=== PATIENT | male | born 1980 | race Caucasian/White ===

== ENCOUNTER 2025-02-28 01:26 | Emergency (ER) | payer BC, SELFPAY ==
--- NOTE | ~2025-02-28 | CT_ITS ---
CLINICAL HISTORY: Periumbilical pain and tenderness; N V CT abdomen and pelvis with contrast Comparison: None provided Findings: The lung bases are clear. Unremarkable gallbladder and solid organs. No urolithiasis. No bowel obstruction, pneumoperitoneum, or pneumatosis. Pelvic contents unremarkable. There are no focal abdominal wall defect or hernia. No acute fracture. IMPRESSION: No acute findings. This document has been electronically signed by: Valdez Duron MD on 02/28/2025 06:43:21
[2025-02-28 01:29] VITALS: BP 118/75; PULSE 64; RESP 16; TEMP 36.3; O2SAT 100; BMI 23.6
[2025-02-28 02:00] LABS: Hematocrit 41.9 % (42.0-52.0); Hemoglobin 14.4 g/dl (14.0-18.0); Imm Gran Abs Auto 0.03 X10*3/uL (0.00-0.03); Imm Gran Pct Auto 0.3 % (0.0-0.4); Lymphocytes Absolute Auto 1.6 X10*3/uL (1.2-4.9); MANUAL DIFF FLAG NO; Mean Corpuscular HGB Conc 34.4 g/dl (31.0-36.0); Mean Corpuscular Hemoglobin 31.9 pg (27.0-33.0); Mean Corpuscular Volume 92.7 fL (80.0-98.0); NRBC Abs Auto 0.000 X10*3/uL (0.0-0.012); NRBC Pct Auto 0.0 /100WBC (0.0-0.2); Platelet Count 159 X10*3/uL (160-400); Red Blood Count 4.52 X10*6/uL (4.60-5.80); White Blood Count 8.8 X10*3/uL (4.8-10.8)
[2025-02-28 02:13] LABS: Alanine Aminotransferase 25 U/L (0-40); Albumin Level 4.3 g/dL (3.5-5.0); Alkaline Phosphatase 54 U/L (39-117); Anion Gap 13 (12-20); Aspartate Amino Transferase 37 U/L (5-37); Blood Urea Nitrogen 16 mg/dL (9-16); Calcium 9.2 mg/dL (8.4-10.2); Carbon Dioxide 27 mmol/L (22-29); Chloride 103 mmol/L (96-108); Creatinine Clr Calc Pharmacy 116.5; Estimated Glomerular Filt Rate > 60; Lipase 39 U/L (8-78); Potassium 4.3 mmol/L (3.3-5.1); Sodium 139 mmol/L (135-145); Total Protein 7.4 g/dL (6.5-8.0)
--- OUTSIDE RECORDS SUMMARY | 2025-02-28 02:20 | XMS_ITS ---
Author Name [facility] Organization Unknown Care Team Organization Name Specialty Phone Email Start Date End Da te [facility] 02/27/202212/08
--- NOTE | 2025-02-28 03:30 | ED_ITS ---
HPI - Abdominal Pain General Chief Complaint: Abdominal Pain Stated Complaint: abd pain Time Seen by Provider: 02/28/25 03:26 Source: patient Mode of arrival: ambulatory Limitations: no limitations History of Present Illness ED Provider: Pavan GALINDO Related Data Previous Rx's ?Medication ?Instructions ?Recorded hydromorphone 2 mg tablet 2 mg PO Q6H PRN pain #12 tab s 02/28/25 (Dilaudid) Allergies Allergy/AdvReac Type Severity Reaction Status Date / Time bee pollen (BEE STINGS) Allergy Unknown LOCAL Verified 02/28/25 01:31 Review of Systems Review of Systems Yes all other systems are reviewed and are negative [facility] Social History Social History Alcohol intake: current Smoked in Last 30 Days: No Use of substances other than those prescribed or required for medical reasons: No Advance Directives: No Advance Directives Information Provided: Yes Do you have a plan to hurt others: No Plan Physical Exam ED Vital Signs: Vital Signs - 24 hr 02/28/25 01:29 02/28/25 03:48 02/28/25 06:34 Temperature 97.3 F 98.1 F Pulse Rate 64 68 66 Respiratory Rate 16 26 H 18 Blood Pressure 118/75 108/59 L 108/62 Pulse Oximetry 100 97 99 Oxygen Delivery Method Room Air Room Air Room Air 02/28/25 08:00 Temperature 98.2 F Pulse Rate 64 Respiratory Rate 16 Blood Pressure 120/65 Pulse Oximetry 95 Oxygen Delivery Method Room Air BMI result Body Mass Index 23.6 Medical Decision Making Medical Decision Making MDM Narrative: 3:50 AM 02/28/2025 (Agustín GALINDO): The patient is a 44-year-old male presenting to the ED for evaluation of periumbilical pain which woke him suddenly from sleep approximately 3 hours prior to arrival in the ED. The patient reports pain radiates from the periumbilical area towards the pelvis, without associated radiation of the back, tearing sensation, fever/chills, nausea, vomiting, diarrhea, dysuria, urinary retention, hematuria, recent sick contacts, or recent trauma. The patient reports history of appendectomy approximately 6 years ago, denies other surgical abdominal history. Patient reports he went to bed last night without complaint, ate chicken salad for dinner which he shared with his , has no pain complaints. The patient denies history of similar symptoms. In the ED the patient appears in obvious discomfort, with tenderness to palpation of the periumbilical and suprapubic region, no significant lateralization, negative rebound. Negative CVAT bilaterally. The patient's laboratory evaluation shows no leukocytosis, significant anemia, electrolyte abnormality, or GEOFFREY. The patient's LFTs are unremarkable, lipase is normal. A bedside ultrasound demonstrates no abdominal or pelvic free fluid. The patient will be sent for CT abdomen and pelvis to evaluate for nephrolithiasis versus other acute intra-abdominal pathology. The patient will be treated with IV fluid hydration, pain management, and antiemetics. 5:57 AM 02/28/2025 (Agustín AGLINDO): Patient's pain has improved following morphine administration, the patient's CT has been obtained in his pending interpretation. Patient was evaluated by RN with bladder scan which showed 222 mL of urine, however patient's postvoid residual was 0. The patient's urinalysis demonstrates trace leukocyte esterase, otherwise clear. We will continue to monitor and await CT interpretation. Time: 08:04 Date: 02/28/25 Provider: Sixto Helm MD I assumed care of this patient from my colleague, physician rehabilitation assistant Pavan Mathis at 06:00 hours pending the patient's CT abdomen pelvis results. The patient is a 44-year-old male history of appendectomy who presents emergency department for evaluation of sudden onset of extreme ester umbilical suprapubic pain that started at 22:00 hours last night. He describes the pain is a constant, stabbing like pain which waxes and wanes in intensity from 5 to 10/10. Patient had no other significant symptoms. He denied fever, chills, nausea, vomiting. Patient had no abdominal injury. States that yesterday watched his son's soccer game and did do yd work but does not remember being injured in any way while doing the [employer] work. Patient was medicated here in the emergency department with Toradol 15 mg, morphine 4 mg x 2 and Zofran 4 mg IV. He states he has gotten minimal pain relief from this treatment. Exam: 06:34 : Vital signs blood pressure 102/62, heart rate 66, respiratory rate 16, temperature 98.1 degrees F, O2 saturation 99% General: Awake, alert in no distress Abdomen: soft, moderate suprapubic tenderness, no rebound, no voluntary or involuntary guarding, normal bowel sounds, skin over the area of tenderness is normal with no erythema or increased warmth, no skin abrasions or skin lesions noted : Circumcised male penis, no testicular or epididymal tenderness, no obvious meatal discharge, no hernias on my exam Psych: Pleasant, cooperative Differential diagnosis: ?Includes but is not limited to necrotizing fasciitis, mesenteric ischemia, viscous perforation, pancreatitis Course: My interpretation patient's laboratory evaluation is as follows: WBC normal 8800 with 72 neutrophils, 18 lymphocytes, no bands. H&H was normal 14.4 and 41.9. Platelet count just below lower limit of normal 159,000. Glucose elevated 115. LFTs were normal. Lipase was normal. Urinalysis positive for leukocyte esterase. Microscopic revealed 0-2 RBCs, 0-5 WBCs and no bacteria. CT scan of the abdomen pelvis with IV contrast revealed no acute abnormalities to explain the patient's pain. I did discuss the laboratory findings and normal CT scan with the patient and the patient's ,Yanira. It is concerning that the patient's pain seems to be out of proportion to his physical findings. At this time I am concerned that the patient may have necrotizing fasciitis and a very early stage. I did repeat the patient's CBC and also we will check ESR, CRP, procalcitonin and CK The patient was given Dilaudid 1 mg IV. 10:05 Patient states that his pain is completely resolved after the IV Dilaudid. The patient's CK and ESR were normal. Procalcitonin was normal. CK was normal. On re-examination the patient has tenderness improved. Patient had no increased erythema or warmth. At this time I do not have a clear etiology for the patient's pain and I did discuss this with him. Given the negative inflammatory markers I do not think that he needs oral antibiotics and I did discuss this with him as well. Patient was advised to take Tylenol and ibuprofen and for pain not relieved by these medications he was prescribed Dilaudid 2 mg every 4 hours as needed for pain. I did give him strict precautions to return to the emergency department if his symptoms get worse, if he develops redness, swelling, fever or chills. Admission/Observation Consideration of admission/observation: Escalation of care including admission/observation considered CT abdomen and pelvis with contrast Comparison: None provided Findings: The lung bases are clear. Unremarkable gallbladder and solid organs. No urolithiasis. No bowel obstruction, pneumoperitoneum, or pneumatosis. Pelvic contents unremarkable. There are no focal abdominal wall defect or hernia. No acute fracture. IMPRESSION: No acute findings. This document has been electronically signed by: Valdez Duron MD on 02/28/2025 06:43:21 Lab Data MDM Lab Attestation statement: I reviewed the patient's lab results. 02/28/25 01:55 02/28/25 01:55 Labs: Lab Results 02/28/25 02/28/25 02/28/25 Range/Units 01:55 04:32 08:24 WBC 8.8 (4.8-10.8) X10*3/uL RBC 4.52 L (4.60-5.80) X10*6/uL Hgb 14.4 (14.0-18.0) g/dl Hct 41.9 L (42.0-52.0) % MCV 92.7 (80.0-98.0) fL MCH 31.9 (27.0-33.0) pg MCHC 34.4 (31.0-36.0) g/dl RDW 12.5 (11.0-16.0) % Plt Count 159 L (160-400) X10*3/uL MPV 11.3 (9.4-12.4) fL Immature Gran % (Auto) 0.3 (0.0-0.4) % Neut % (Auto) 72.6 (45-73) % Lymph % (Auto) 18.0 L (20-40) % Culberson % (Auto) 7.3 (2-11) % Eos % (Auto) 1.6 (0-4) % Baso % (Auto) 0.2 (0-2) % Lymph # (Auto) 1.6 (1.2-4.9) X10*3/uL [place]on # (Auto) 0.6 (0.1-1.2) X10*3/uL Eos # (Auto) 0.1 (0.0-0.4) X10*3/uL Baso # (Auto) 0.0 (0.0-0.2) X10*3/uL Abs Immat Gran (auto) 0.03 (0.00-0.03) X10*3/uL Absolute Neuts (auto) 6.4 (2.0-8.3) x10*3/uL Absolute Nucleated RBC 0.000 (0.0-0.012) X10*3/uL Nucleated RBC % (auto) 0.0 (0.0-0.2) /100WBC ESR 1 (0-15) MM/HR PT 12.1 (11.2-13.5) SEC INR 1.0 (0.9-1.1) APTT 27.5 (26.7-34.1) SEC Sodium 139 (135-145) mmol/L Potassium 4.3 (3.3-5.1) mmol/L Chloride 103 (96-108) mmol/L Carbon Dioxide 27 (22-29) mmol/L Anion Gap 13 (12-20) BUN 16 (9-16) mg/dL Creatinine 0.96 (0.5-1.4) mg/dL Estim Creat Clear Calc 116.5 Estimated GFR > 60 Random Glucose 118 H (60-115) mg/dL Lactic Acid 0.7 (0.5-2.0) mmol/L Calcium 9.2 (8.4-10.2) mg/dL Total Bilirubin 0.7 (0.0-1.0) mg/dL AST 37 (5-37) U/L ALT 25 (0-40) U/L Alkaline Phosphatase 54 (39-117) U/L Total Creatine Kinase 84 (38-174) U/L C-Reactive Protein < 0.04 (< or = 0.50) mg/dL Total Protein 7.4 (6.5-8.0) g/dL Albumin 4.3 (3.5-5.0) g/dL Lipase 39 (8-78) U/L Procalcitonin < 0.02 ng/mL Urine Color Yellow Urine Appearance Clear Urine pH 8.5 (5.0-9.0) Ur Specific Dayhoit 1.025 (1.005-1.025) Urine Protein Trace (Neg-Trace) mg/dL Urine Glucose (UA) Negative (Negative) mg/dL Urine Ketones 15 (Negative) mg/dL Urine Blood Negative (Negative) Urine Nitrite Negative (Negative) Ur Leukocyte Esterase Trace H (Negative) Urine RBC 0-2 (0-2) /HPF Urine WBC 0-5 (0-5) /HPF Ur Squamous Epith Cells 0-2 (0-2) /HPF Urine Bacteria None Seen (None Seen) Hyaline Casts 0-2 (0-2) /LPF Radiology Impression Discussion of test interpretation with radiology: I have reviewed the radiologist's reading. Independent Historian Clinical information obtained from an independent historian. History obtained from or confirmed by: Spouse External Record Review External record reviewed: Outpatient record and Prior outpatient labs Medications Administered Discontinued Medications Generic Name Dose Route Start Last Admin Trade Name Ame PRN Reason Stop Dose Admin Hydromorphone HCl 1 mg 02/28/25 07:59 02/28/25 08:33 Hydromorphone Hcl 1 Mg/Ml Syringe IVPUSH 02/28/25 08:00 1 mg ONCE STA Administration Protocol Sodium Chloride 1,000 mls @ 999 mls/hr 02/28/25 03:30 02/28/25 04:27 Ns IV 02/28/25 04:30 Infused .Q1H1M KHRIS Infusion Sodium Chloride 1,000 mls @ 999 mls/hr 02/28/25 07:59 02/28/25 08:33 Ns IV 02/28/25 08:59 999 mls/hr .Q1H1M STA Administration Clindamycin Phosphate 600 mg in 50 mls @ 100 mls/hr 02/28/25 07:59 02/28/25 08:33 Cleocin IV 02/28/25 08:28 100 mls/hr ONCE ONE Administration Piperacillin Sod/Tazobactam 100 mls @ 200 mls/hr 02/28/25 07:59 02/28/25 08:33 Sod 4.5 gm/ Sodium Chloride IV 02/28/25 08:28 200 mls/hr ONCE ONE Administration Iohexol 85 ml 02/28/25 04:50 02/28/25 05:02 Iohexol 350 Mg/Ml 100 Ml Infus..Btl IV 02/28/25 04:51 85 ml ONCE ONE Administration Ketorolac Tromethamine 15 mg 02/28/25 03:27 02/28/25 03:33 Ketorolac Tromethamine 15 Mg/Ml Vial IVPUSH 02/28/25 03:28 15 mg ONCE ONE Administration Morphine Sulfate 4 mg 02/28/25 03:51 02/28/25 04:07 Morphine Sulfate 4 Mg/Ml Cartridge IVPUSH 02/28/25 03:52 4 mg ONCE ONE Administration Protocol Morphine Sulfate 4 mg 02/28/25 06:19 02/28/25 06:29 Morphine Sulfate 4 Mg/Ml Cartridge IVPUSH 02/28/25 06:20 4 mg ONCE STA Administration Protocol Ondansetron HCl 4 mg 02/28/25 03:27 02/28/25 03:33 Ondansetron Hcl 4 Mg/2 Ml Vial IVPUSH 02/28/25 03:28 4 mg ONCE ONE Administration Critical Care Time Critical Care Time Critical Care Time: Yes Total Critical Care Time: 45 Attestation: Critical Care: The patient was critically ill with a high probability of imminent or life threatening deterioration. I spent greater than 30 minutes of discontinuous time evaluating the patient,delivering critical care at the bedside, discussing and evaluating pertinent data with consultants. Critical care time does not include time spent performing separately billable procedures or teaching. Total time spent performing critical care was 45 minutes. Discharge Plan Discharge Clinical Impression: Abdominal pain Qualifiers: Abdominal location: periumbilical Qualified Code(s): R10.33 - Periumbilical pain Patient Disposition: Home, Self-Care Instructions: Abdominal Pain (ED) Additional Instructions: You had a complete blood count, comprehensive metabolic panel , these were all normal. Your urine test was negative for an infection. Your inflammatory markers (ESR and CRP) were normal. Your marker of muscle breakdown (CK) was normal. Your markers for infection (procalcitonin and lactic acid) were normal. The CT scan of your abdomen pelvis with IV contrast did not reveal a clear cause for your pain. I was initially concerned that you might have necrotizing fasciitis and you received 2 antibiotics Zosyn 4.5 g IV and clindamycin 600 mg IV. Given your negative workup, I do not think that you need for oral antibiotics at this time however if you develop fever, chills, redness or swelling of the skin in the area where your having the pain, severe pain again, or any other symptoms that are concerning to you, I want you to come back to the emergency department so that we can re-evaluate you. Take ibuprofen 200 mg pills, 2 pills every 6 hours as needed for pain. Take Tylenol (acetaminophen) 2 pills every 6 hours as needed for pain. For pain not relieved by ibuprofen or Tylenol take Dilaudid (hydromorphone) 2 mg pills, 1 pill every 6 hours as needed for pain. This medication will make you sleepy, do not drive or work while taking this medication. Dilaudid (hydromorphone) is a narcotic medication and can be addicting. If you are concerned about addiction you can ask the pharmacist for less pills or do not get this prescription filled. Follow-up with your doctor in 2 days. Please return to the emergency department if your symptoms get worse or if you develop any symptoms that are concerning to you. Prescriptions: New hydromorphone [Dilaudid] 2 mg tablet 2 mg PO Q6H PRN (Reason: pain) Qty: 12 0RF Rx Instructions: Partial Fill upon patient request. Print Language: Nepalese
--- NOTE | 2025-02-28 03:36 | PC.NURSE ---
pt reporting significant change in abd pain, breathing rate has changed, more labored/increased. pt very tremulous and restless in bed d/t pain, visibly uncomfortable. provider made aware. 20g IV L upper arm. medicated per MAR
[2025-02-28 03:48] VITALS: BP 108/59; PULSE 68; RESP 26; O2SAT 97
[2025-02-28 04:39] LABS: Appearance Urine Clear; Glucose Urine UA Negative (Negative); PH 8.5 (5.0-9.0); Specific Gravity - Urine 1.025 (1.005-1.025); UMIC TRIGGER UACC YES
[2025-02-28] MEDS: iohexoL 350 MG/ML 100 ML INFUS..BTL 85 ML IV (05:02)
[2025-02-28 06:34] VITALS: BP 108/62; PULSE 66; RESP 18; TEMP 36.7; O2SAT 99
[2025-02-28 08:00] VITALS: BP 120/65; PULSE 64; RESP 16; TEMP 36.8; O2SAT 95
[2025-02-28 08:58] LABS: INTERNATIONAL NORM RATIO 1.0 (0.9-1.1); Prothrombin Time 12.1 SEC (11.2-13.5)
[2025-02-28 09:00] LABS: Partial Thromboplastin Time 27.5 SEC (26.7-34.1)
[2025-02-28 09:14] LABS: Erythrocyte Sedimentation Rate 1 MM/HR (0-15)
[2025-02-28 09:22] LABS: Procalcitonin < 0.02 ng/mL
[2025-02-28 10:00] VITALS: BP 109/62; PULSE 66; RESP 18; TEMP 36.8; O2SAT 97
--- NOTE | 2025-02-28 10:27 | PC.NURSE ---
Patient resting comfortably at this time. States pain is 2/10. Patient denies nausea/vomiting. Pain remains just below umbilicus, as previously stated.
[2025-02-28 10:41] VITALS: BP 109/62; PULSE 66; RESP 18; TEMP 36.8; O2SAT 97
== END 2025-02-28 10:42 | disposition home or self-care (01) ==
PROVIDERS: Emergency Medicine; Physician Assistant; Emergency Provider Emergency Medicine Emergency Medical Services; PCP Internal Medicine
DX: R10.33 Periumbilical pain (principal); M54.50 Low back pain, unspecified; R10.815 Periumbilic abdominal tenderness; Z79.899 Other long term (current) drug therapy
CPT/HCPCS: 36415; 74177; 80053; 81001; 81003; 82550; 83605; 83690; 84145; 85025; 85610; 85652; 85730; 86140; 87040; 96361; 96374; 96375; 96376; 99285; J0736; J1171; J1885; J2270; J2405; J2543; Q9967

== ENCOUNTER → 2025-02-28 03:27 | Outpatient (BNV) | payer BC, SELFPAY | PROVIDERS: Emergency Provider Emergency Medicine; PCP Internal Medicine; Visit Provider Specialist | DX: R10.33 Periumbilical pain (principal) | CPT/HCPCS: 74177 ==